=== PATIENT | male | born 1965 | race African-American/Black ===

== ENCOUNTER 2024-03-21 13:17 | Outpatient (CLI) | payer OTHER, SELFPAY ==
--- NOTE | 2024-03-21 13:29 | ECHOD_ITS ---
Reason For Study: CARDIOMYOPATHY Procedure This was a 2D Doppler, Color Flow transthoracic echocardiogram. Exam performed in department. Left Ventricle Normal LV size. Apical false tendon noted. Left ventricular systolic function is normal. The left ventricular ejection fraction is 60 %. No regional wall motion abnormalities noted. Right Ventricle Normal right ventricle. Normal systolic function. Atria Normal left atrium. Normal right atrium. Mitral Valve Normal mitral valve. Tricuspid Valve Normal tricuspid valve. Pulmonic Valve Normal pulmonic valve. Great Vessels Normal aortic root. The pulmonary artery is normal size. Normal inferior vena cava. Pericardium/Pleural No pericardial effusion. MMode/2D Measurements & Calculations LVIDd: 4.0 cm IVSd: 1.3 cm LVOT diam: 2.2 cm LVIDs: 1.9 cm LVPWd: 1.1 cm LVOT area: 3.7 cm2 RVDd: 3.8 cm FS: 52.1 % _ asc Aorta Diam: 3.5 cm LAV(MOD-bp): 35.8 ml LVAd ap4: 24.1 cm2 LAV(MOD-bp) Indexed: 14.5 ml/m2 LVLd ap4: 8.0 cm LAV(MOD-sp2): 45.9 ml EDV(MOD- sp4): 58.7 ml LAV(MOD-sp4): 28.5 ml EDV(sp4- el): 61.7 ml LVAs ap4: 14.3 cm2 LVLs ap4: 6.6 cm ESV(MOD- sp4): 25.6 ml ESV(sp4- el): 26.4 ml EF(MOD- sp4): 56.4 % EF(sp4- el): 57.3 % _ SV(MOD-sp4): 33.2 ml SV(MOD- sp2): 32.1 ml LVAd ap2: 22.1 cm2 LVLd ap2: 7.8 cm SI(MOD-sp4): 13.5 ml/m2 SI(MOD- sp2): 13.1 ml/m2 EDV(MOD-sp2): 52.2 ml EDV(sp2-el): 52.9 ml LVAs ap2: 12.6 cm2 LVLs ap2: 6.8 cm ESV(MOD-sp2): 20.1 ml ESV(sp2-el): 19.8 ml EF(MOD-sp2): 61.5 % _ SV(sp4-el): 35.3 ml Ao sinus diam: 3.[address] Junction: 3.0 cm _ LA A4 area: 12.5 cm2 LA dimension(2D): 3.1 cm RA A4 area: 8.2 cm2 _ TAPSE: 1.5 cm Time Measurements MV dec time: 0.18 sec Doppler Measurements & Calculations MV E max buster: 50.7 cm/sec Lat Peak E' Buster: 8.9 cm/sec Med Peak E' Buster: 6.5 cm/sec MV A max buster: 58.4 cm/sec E/E' lat: 5.7 E/E' med: 7.8 MV E/A: 0.87 _ Ao V2 max: 127.9 cm/sec LV V1 max: 89.1 cm/sec MV dec slope: 287.9 cm/sec2 Ao max P.5 mmHg LV V1 max P.2 mmHg Ao V2 mean: 97.4 cm/sec LV V1 mean P.8 mmHg Ao mean P.0 mmHg LV V1 mean: 63.6 cm/sec Ao V2 VTI: 24.5 cm LV V1 VTI: 17.6 cm AV (velocity ratio): 0.72 SWATI(I,D): 2.7 cm2 SWATI(V,D): 2.6 cm2 _ SV(LVOT): 65.0 ml PA V2 max: 81.1 cm/sec ECHO/Echo Complete Interpretation Summary Normal LV size. Left ventricular systolic function is normal. The left ventricular ejection fraction is 60 %. Apical false tendon noted. Ordering Physician: Ramez Grider Referring Physician: Ramez Grider Performed By: Latrice Jc RDCS
[2024-03-21 14:50] LABS: Hematocrit 43.7 % (40-54); Hemoglobin 14.9 g/dL (13.0-16.5); Mean Corp Hgb Conc 34.1 g/dL (32-36); Mean Corpuscular Hgb 30.2 pg (27.0-32.0); Mean Corpuscular Volume 88.5 fL (80-94); Mean Platelet Vol. 10.1 fl (6.2-12.0); Platelet Count 287 K/mm3 (150-450); RBC Distribution Width CV 13.3 % (11.6-14.6); Red Blood Count 4.94 M/mm3 (4.6-6.2); White Blood Count 6.5 K/mm3 (4.4-11.0)
== END 2024-03-21 23:59 | disposition home or self-care (01) ==
PROVIDERS: PCP Family Medicine; Referring Provider Chiropractor; Visit Provider Chiropractor
DX: I42.9 Cardiomyopathy, unspecified (principal); D64.9 Anemia, unspecified
CPT/HCPCS: 36415; 85027; 93306